=== PATIENT | female | born 1985 ===

== ENCOUNTER 2017-11-21 16:22 | Emergency (ER) | payer SELFPAY ==
[2017-11-21 16:48] VITALS: BP 126/81; RESP 16
[2017-11-21 17:37] LABS: PROTHROMBIN TIME 11.6 Seconds (9.8-13.1)
[2017-11-21 17:39] LABS: PARTIAL THROMBOPLASTIN TIME 27.7 Seconds (25.6-37.1)
[2017-11-21 17:42] LABS: BLOOD UREA NITROGEN 9 mg/dl (7-17); CALCIUM 8.8 mg/dL (8.4-10.2); GFR NON-AFRICAN AMERICAN > 60
[2017-11-21 17:47] LABS: BASO % 0.7 % (0.0-2.0); EOS % 0.3 % (0.0-4.0); HEMOGLOBIN 8.4 g/dL (12.0-16.0); LYMPH # 1.9 K/uL (1.0-4.3); LYMPH % 30.9 % (20.0-40.0); MEAN CELL VOLUME 80.7 fl (81.0-99.0); MEAN CORPUSCULAR HEMOGLOBIN 26.4 pg (27.0-31.0); MEAN CORPUSCULAR HGB CONC 32.7 g/dL (33.0-37.0); MEAN PLATELET VOLUME 7.8 fl (7.2-11.7); MONO # 0.5 K/uL (0.0-0.8); MONO % 7.2 % (0.0-10.0); NEUT # 3.8 K/uL (1.8-7.0); NEUT % 60.9 % (50.0-75.0); NRBC % 0.1 % (0.0-0.0); RBC 3.19 Mil/uL (3.80-5.20); RED CELL DISTRIBUTION WIDTH 31.9 % (11.5-14.5); WHITE BLOOD COUNT 6.3 K/uL (4.8-10.8)
--- NOTE | 2017-11-21 19:18 | ED PDOC ---
HPI: Female Pain Time Seen by Provider: 11/21/17 16:54 Chief Complaint (Nursing): Female Genitourinary Chief Complaint (Provider): Vaignal bleeding History Per: Patient Onset/Duration Of Symptoms: Days, Persistent Current Symptoms Are (Timing): Still Present Additional Complaint(s): 32yo female, comes to ER reporting persistent vaginal bleeding. Patient reports she was admitted to [facility] 20 days ago due to similar complaints, received a blood transfusion and went home on a 10-day course of an unknown medication. Patient reports the medication initially helped with the bleeding and since then returned. Patient also reports exertional dizziness; patient states she has been using 1 pad per hour for the entire day. Of note, patient states her last was 8 years ago. Otherwise, no fever, chills, chest pain, shortness of breath, abdominal pain or additional medical complaints. PMD: None provided Abnormal Vaginal Bleeding: Yes Past Medical History Reviewed: Historical Data, Nursing Documentation, Vital Signs Vital Signs: Last Vital Signs Temp 98.2 F 11/21/17 16:46 Pulse 69 11/21/17 16:46 Resp 16 11/21/17 16:46 BP 126/81 11/21/17 16:46 Pulse Ox 100 11/21/17 16:46 - Surgical History Surgical History: (x 3) - Family History Family History: States: No Known Family Hx - Living Arrangements Living Arrangements: With Family - Social History Current smoker - smoking cessation education provided: No Alcohol: None Drugs: Denies - Immunization History Hx Tetanus Toxoid Vaccination: No Hx Influenza Vaccination: No Hx Pneumococcal Vaccination: No - Home Medications Home Medications: Ambulatory Orders Medication Instructions Recorded Ferrous Sulfate [Feosol] 325 mg PO TID #30 tab 11/21/17 MedroxyPROGESTERone [Provera] 10 mg PO DAILY #30 tab 11/21/17 - Allergies Allergies/Adverse Reactions: Allergies Allergy/AdvReac Type Severity Reaction Status Date / Time No Known Allergies Allergy Verified 11/21/17 16:46 Review of Systems ROS Statement: Except As Marked, All Systems Reviewed And Found Negative Constitutional: Negative for: Fever, Chills Cardiovascular: Negative for: Chest Pain Respiratory: Negative for: Shortness of Breath Gastrointestinal: Negative for: Vomiting, Abdominal Pain Genitourinary Female: Positive for: Vaginal Bleeding. Negative for: Pelvic Pain Neurological: Positive for: Dizziness (on exertion) Physical Exam - Reviewed Nursing Documentation Reviewed: Yes Vital Signs Reviewed: Yes - Physical Exam Appears: Positive for: Non-toxic, No Acute Distress Head Exam: Positive for: ATRAUMATIC, NORMAL INSPECTION, NORMOCEPHALIC Skin: Positive for: Pallor Eye Exam: Positive for: EOMI, Normal appearance, PERRL Neck: Positive for: Normal, Supple Cardiovascular/Chest: Positive for: Regular Rate, Rhythm Respiratory: Positive for: Normal Breath Sounds Gastrointestinal/Abdominal: Positive for: Normal Exam, Soft Pelvic Exam: Positive for: Blood (mild to moderate blood in vaginal valt), Other (closed cervix) Back: Positive for: Normal Inspection Extremity: Positive for: Normal ROM. Negative for: Pedal Edema Neurologic/Psych: Positive for: Alert, Oriented. Negative for: Motor/Sensory Deficits - Laboratory Results Result Diagrams: 11/21/17 17:23 11/21/17 17:23 - ECG O2 Sat by Pulse Oximetry: 100 (RA) Pulse Ox Interpretation: Normal Medical Decision Making Medical Decision Making: Patient with persistent vaginal bleeding. Labs reviewed, patient with Hgb of 8.4. Upreg is negative. [address] Shirley, who recommends provera 10mg daily for 1 month and for outpatient [facility] follow up. Instructions for follow up as well as indications to return discussed with patient in Maltese. Patient stable for discharge home. Scribe Attestation: Documented by Kerri Multani, acting as a scribe for Ferny Venegas DO. Provider Scribe Attestation: All medical record entries made by the Scribe were at my direction and personally dictated by me. I have reviewed the chart and agree that the record accurately reflects my personal performance of the history, physical exam, medical decision making, and the department course for this patient. I have also personally directed, reviewed, and agree with the discharge instructions and disposition. Disposition - Clinical Impression Clinical Impression: Menorrhagia - Disposition [facility] Condition: STABLE Additional Instructions: Followup with [facility] in 1 week. Return to ER for any worsening weakness, dizziness or bleeding >3 pads/hour. Take Provera 10mg daily for one month. You need to see [facility] for further testing and definitive treatment. Seguimiento con gineclogo en 1 semana. Regrese a la ca de emergencias por cualquier empeoramiento de la debilidad, mareo o sangrado> 3 compresas / hora. [place] Provera 10 mg al da jacquelyn un mes. Necesitas leonard a un gineclogo para realizar ms pruebas Prescriptions: Ferrous Sulfate [Feosol] 325 mg PO TID #30 tab MedroxyPROGESTERone [Provera] 10 mg PO DAILY #30 tab Instructions: Anemia Caused by Low Iron, Adult (DC), Heavy Periods (DC) Forms: [employer] (Vietnamese) Print Language: SINHALA
[2017-11-21 19:31] VITALS: PULSE 65; TEMP 98.1; O2SAT 98
== END 2017-11-21 19:20 | disposition home or self-care (01) ==
LOC: H.ER 16:22
DX: N92.0 Excessive and frequent menstruation with regular cycle (principal)

== ENCOUNTER 2018-03-29 17:51 | Emergency (ER) | payer SELFPAY ==
[2018-03-29 18:22] VITALS: O2SAT 100
--- NOTE | 2018-03-29 19:08 | ED PDOC ---
HPI: General Adult Time Seen by Provider: 03/29/18 19:00 Chief Complaint (Nursing): Female Genitourinary Chief Complaint (Provider): high blood pressure History Per: Patient History/Exam Limitations: no limitations Onset/Duration Of Symptoms: Intermittent Episodes Current Symptoms Are (Timing): Better Additional Complaint(s): 32 year old female with pmHx of HTN, is referred to ED by her PCP for an evaluation of high blood pressure during a follow up visit today. Patient initially came to office for lower abdominal pain ongoing for 1 week in addition to current treatment for UTI and STD. Blood pressure was noted at 173/100 then referred to ED. No reports of headache, chest pain, or further medical complaints. Of note, patient previously discontinued Rx for hydrochlorothiazide 12.5mg months ago as she felt her BP became regulated. PCP: none provided Past Medical History Reviewed: Historical Data, Nursing Documentation, Vital Signs Vital Signs: Last Vital Signs Temp 98.5 F 03/29/18 18:17 Pulse 69 03/29/18 18:17 Resp 16 03/29/18 18:17 BP 133/86 03/29/18 18:17 Pulse Ox 100 03/29/18 18:17 - Medical History PMH: HTN - Surgical History Surgical History: (x 3) - Family History Family History: States: No Known Family Hx - Immunization History Hx Tetanus Toxoid Vaccination: No Hx Influenza Vaccination: No Hx Pneumococcal Vaccination: No - Home Medications Home Medications: Ambulatory Orders Medication Instructions Recorded Ferrous Sulfate [Feosol] 325 mg PO TID #30 tab 11/21/17 MedroxyPROGESTERone [Provera] 10 mg PO DAILY #30 tab 11/21/17 - Allergies Allergies/Adverse Reactions: Allergies Allergy/AdvReac Type Severity Reaction Status Date / Time No Known Allergies Allergy Verified 03/29/18 18:17 Review of Systems ROS Statement: Except As Marked, All Systems Reviewed And Found Negative Cardiovascular: Negative for: Chest Pain Gastrointestinal: Positive for: Abdominal Pain (lower) Neurological: Negative for: Headache Physical Exam - Reviewed Nursing Documentation Reviewed: Yes Vital Signs Reviewed: Yes - Physical Exam Appears: Positive for: Well, Non-toxic, No Acute Distress Head Exam: Positive for: ATRAUMATIC, NORMAL INSPECTION, NORMOCEPHALIC Skin: Positive for: Normal Color Eye Exam: Positive for: Normal appearance, EOMI, PERRL ENT: Positive for: Normal ENT Inspection. Negative for: Pharyngeal Erythema Neck: Positive for: Normal, Painless ROM, Supple Cardiovascular/Chest: Positive for: Regular Rate, Rhythm, Chest Non Tender. Negative for: Murmur Respiratory: Positive for: Normal Breath Sounds. Negative for: Wheezing, Respiratory Distress Pulses-Radial (L): 2+ Pulses-Radial (R): 2+ Gastrointestinal/Abdominal: Positive for: Normal Exam, Soft. Negative for: Tenderness, Guarding, Rebound Back: Positive for: Normal Inspection Extremity: Positive for: Normal ROM (upper/lower) Neurologic/Psych: Positive for: Alert, Oriented. Negative for: Motor/Sensory Deficits - ECG O2 Sat by Pulse Oximetry: 100 (RA) Pulse Ox Interpretation: Normal Medical Decision Making Medical Decision Making: Initial Impression: Asymptomatic hypertension Initial Plan: Scribe Attestation: Documented by Shu Bar, acting as a scribe for Katey Longo MD. Provider Scribe Attestation: All medical record entries made by the Scribe were at my direction and personally dictated by me. I have reviewed the chart and agree that the record accurately reflects my personal performance of the history, physical exam, medical decision making, and the department course for this patient. I have also personally directed, reviewed, and agree with the discharge instructions and disposition. Disposition - Disposition Forms: [employer] (Bulgarian)
[2018-03-29] MEDS ORDERED: Sodium Chloride 0.9% 1,000 ML IV STA (19:40)
--- NOTE | 2018-03-29 19:49 | ED PDOC ---
HPI: Abdomen Time Seen by Provider: 03/29/18 19:00 Chief Complaint (Nursing): Female Genitourinary Chief Complaint (Provider): abdominal pain History Per: Patient History/Exam Limitations: no limitations Onset/Duration Of Symptoms: Days (x2) Current Symptoms Are (Timing): Still Present Additional Complaint(s): 32 year old female with pmHx of anemia, uterine fibroids, and DUB, presents to ED with a complaint of diffuse abdominal pain associated with vomiting, watery d iarrhea, decreased appetite, and dizziness since last night. Additionally, she reports experiencing vaginal bleeding secondary to her DUB diagnosis and has been on Provera for 3 months and iron boosts for anemia. PCP: none provided Past Medical History Reviewed: Historical Data, Nursing Documentation, Vital Signs Vital Signs: Last Vital Signs Temp 98.5 F 03/29/18 18:17 Pulse 69 03/29/18 18:17 Resp 16 03/29/18 18:17 BP 133/86 03/29/18 18:17 Pulse Ox 100 03/29/18 18:17 - Medical History PMH: Anemia Other PMH: uterine fibroids - Surgical History Surgical History: (x 3) Other surgeries: transfusion x1 - Family History Family History: States: Unknown Family Hx - Immunization History Hx Tetanus Toxoid Vaccination: No Hx Influenza Vaccination: No Hx Pneumococcal Vaccination: No - Home Medications Home Medications: Ambulatory Orders Medication Instructions Recorded Ferrous Sulfate [Feosol] 325 mg PO TID #30 tab 11/21/17 MedroxyPROGESTERone [Provera] 10 mg PO DAILY #30 tab 11/21/17 Dicyclomine [Dicyclomine HCl] 10 mg PO TID #15 cap 03/29/18 Ondansetron ODT [Zofran ODT] 4 mg PO Q8 PRN #12 odt 03/29/18 - Allergies Allergies/Adverse Reactions: Allergies Allergy/AdvReac Type Severity Reaction Status Date / Time No Known Allergies Allergy Verified 03/29/18 18:17 Review of Systems ROS Statement: Except As Marked, All Systems Reviewed And Found Negative Gastrointestinal: Positive for: Vomiting, Abdominal Pain, Diarrhea (watery), Other (decreased appetite) Genitourinary Female: Positive for: Vaginal Bleeding Neurological: Positive for: Dizziness Physical Exam - Reviewed Nursing Documentation Reviewed: Yes Vital Signs Reviewed: Yes - Physical Exam Appears: Positive for: Non-toxic, No Acute Distress Head Exam: Positive for: ATRAUMATIC, NORMAL INSPECTION, NORMOCEPHALIC Skin: Positive for: Normal Color Eye Exam: Positive for: Normal appearance ENT: Positive for: Normal ENT Inspection Neck: Positive for: Normal, Supple Cardiovascular/Chest: Positive for: Regular Rate, Rhythm, Chest Non Tender Respiratory: Positive for: Normal Breath Sounds. Negative for: Respiratory Distress Gastrointestinal/Abdominal: Positive for: Soft, Tenderness (mild, nonspecific, diffuse). Negative for: Distended Back: Positive for: Normal Inspection. Negative for: L CVA Tenderness, R CVA Tenderness Extremity: Positive for: Normal ROM (upper/lower) Neurologic/Psych: Positive for: Alert, Oriented. Negative for: Motor/Sensory Deficits - Laboratory Results Result Diagrams: 03/29/18 20:02 03/29/18 20:02 - ECG O2 Sat by Pulse Oximetry: 100 (RA) Pulse Ox Interpretation: Normal - Progress Re-evaluation Time: 23:44 Condition: Re-examined, Improved Medical Decision Making Medical Decision Making: Initial Impression: acute abdominal pain/vomiting/ diarrhea. chronic vaginal bleed x3 months Differential diagnosis: gastritis, pancreatitis, gastroenteritis, colitis; DUB, chronic anemia, uterine fibroids. Initial Plan: * CT ABD/pelvis * Labs * Bentyl 10mg PO * IV fluids * Toradol 15mg IVP * Zofran 4mg IVP Scribe Attestation: Documented by Shu Bar, acting as a scribe for Katey Longo MD. Provider Scribe Attestation: All medical record entries made by the Scribe were at my direction and personally dictated by me. I have reviewed the chart and agree that the record accurately reflects my personal performance of the history, physical exam, medical decision making, and the department course for this patient. I have also personally directed, reviewed, and agree with the discharge instructions and disposition. Time: 1100 CT ABD/PELVIS RESULTS FINDINGS: LUNG BASES: The lung bases appear clear. No pleural effusions are seen. LIVER: There is some hepatic steatosis present. GALLBLADDER AND BILE DUCTS: The gallbladder appears within normal limits. No radioopaque gallstones are seen. No biliary ductal dilatation is evident. PANCREAS: Unremarkable. SPLEEN: Unremarkable. ADRENAL GLANDS: Unremarkable. KIDNEYS, URETERS, AND BLADDER: The kidneys appear within normal limits. There is no hydronephrosis or hydroureter. A punctate non-obstructing calculus is seen in the lower left renal pole. The urinary bladder is normal in size and configuration. STOMACH AND BOWEL: Unremarkable appearance of the stomach. No evidence of bowel obstruction. There is mucosal wall thickening seen within the ileal small intestine measuring up to 3.8 mm transversely. These findings are compatible with some ileitis APPENDIX: No evidence of acute appendicitis on CT examination. PERITONEUM: No free fluid. No free air. LYMPH NODES: No lymphadenopathy is evident. REPRODUCTIVE: Unremarkable as visualized. VASCULATURE: No evidence of abdominal aortic aneurysm. BONES: No aggressive appearing osseous lesion. No acute osseous pathology evident. IMPRESSION: 1. Evidence of ileitis of the small intestinal tract. 2. A punctate non--obstructing calculus is noted in the lower left renal pole. 3. Some hepatic steatosis is noted. Electronically signed on Mar 29, 2018 11:00:25 PM EST by: Sunny Solano M.D., IKE Certified By ABR & CBC[facility] Fellowship Trained MRI and CT Specialist Disposition - Clinical Impression Clinical Impression: Abdominal pain, Hepatic steatosis - Patient ED Disposition Is Patient to be Admitted: No Doctor Will See Patient In The: Office Counseled Patient/Family Regarding: Studies Performed, Diagnosis, Need For Followup - Disposition Referrals: [facility] [Outside] Disposition: Routine/Home Disposition Time: 23:44 Condition: GOOD Additional Instructions: BA EISENBERG, thank you for letting us take care of you today. Your provider was Katey Longo MD and you were treated for LOWER ABD PAIN. The emergency medical care you received today was directed at your acute symptoms. If you were prescribed any medication, please fill it and take as directed. It may take several days for your symptoms to resolve. Return to the Emergency Department if your symptoms worsen, do not improve, or if you have any other problems. Please contact your doctor or call one of the physicians/clinics you have been referred to that are listed on the Patient Visit Information form that is included in your discharge packet. Bring any paperwork you were given at discharge with you along with any medications you are taking to your follow up visit. Our treatment cannot replace ongoing medical care by a primary care provider outside of the emergency department. Thank you for allowing the [facility] team to be part of your care today. If you had an X-Ray or CT scan: A Radiologist will review the ED reading if any change in treatment is needed we will contact you. If you had a blood, urine, or wound culture: It will take several days for the results, if any change in treatment is needed we will contact you. If you had an STI test: It will take 48 hours for the results. Please call after 1 week if you have not heard back. Prescriptions: Dicyclomine [Dicyclomine HCl] 10 mg PO TID #15 cap Ondansetron ODT [Zofran ODT] 4 mg PO Q8 PRN #12 odt PRN Reason: Nausea/Vomiting Instructions: Viral Gastroenteritis, Adult (DC)
[2018-03-29 20:05] LABS: BASO # 0.1 K/uL (0.0-0.2); BASO % 1.1 % (0.0-2.0); EOS # 0.1 K/uL (0.0-0.7); HEMOGLOBIN 11.5 g/dL (12.0-16.0); LYMPH # 2.4 K/uL (1.0-4.3); MEAN CELL VOLUME 90.7 fl (81.0-99.0); MEAN CORPUSCULAR HEMOGLOBIN 30.1 pg (27.0-31.0); MEAN CORPUSCULAR HGB CONC 33.2 g/dL (33.0-37.0); MEAN PLATELET VOLUME 7.5 fl (7.2-11.7); MONO # 0.5 K/uL (0.0-0.8); MONO % 8.4 % (0.0-10.0); NEUT # 2.8 K/uL (1.8-7.0); NEUT % 48.5 % (50.0-75.0); NRBC % 0.1 % (0.0-0.0); RBC 3.83 Mil/uL (3.80-5.20); RED CELL DISTRIBUTION WIDTH 14.1 % (11.5-14.5); WHITE BLOOD COUNT 5.8 K/uL (4.8-10.8)
[2018-03-29 20:18] LABS: ALB/GLOB RATIO 1.2 (1.0-2.1); ALBUMIN 4.4 g/dL (3.5-5.0); ALT/SGPT 26 U/L (9-52); AST/SGOT 37 U/L (14-36); BLOOD UREA NITROGEN 12 mg/dl (7-17); CALCIUM 9.6 mg/dL (8.4-10.2); GFR NON-AFRICAN AMERICAN > 60; LIPASE 74 U/L (23-300)
[2018-03-29] MEDS ORDERED: Iohexol 300 100 ML IJ ONE (21:58)
[2018-03-29] MEDS ORDERED: Sodium Chloride 0.9% 50 ML IV ONE (21:58)
[2018-03-29 23:54] VITALS: BP 101/68; PULSE 60; RESP 18; TEMP 98
--- NOTE | 2018-03-30 08:41 | CT ---
Date of service: 03/29/2018 PROCEDURE: CT Abdomen and Pelvis with contrast HISTORY: abdominal pain COMPARISON: None. TECHNIQUE: Contrast dose: Radiation dose: Total exam DLP = 344.45 mGy-cm. This CT exam was performed using one or more of the following dose reduction techniques: Automated exposure control, adjustment of the mA and/or kV according to patient size, and/or use of iterative reconstruction technique. FINDINGS: LOWER THORAX: Unremarkable. LIVER: Mild fatty liver. No gross lesion or ductal dilatation. GALLBLADDER AND BILE DUCTS: Unremarkable. PANCREAS: Unremarkable. No gross lesion or ductal dilatation. SPLEEN: Unremarkable. ADRENALS: Unremarkable. No mass. KIDNEYS AND URETERS: Tiny left lower pole renal calculus. No hydronephrosis. No solid mass. VASCULATURE: Unremarkable. No aortic aneurysm. No aortic atherosclerotic calcification or mural plaque present. BOWEL: Unremarkable. No obstruction. No gross mural thickening. APPENDIX: Normal appendix. PERITONEUM: Unremarkable. No free fluid. No free air. LYMPH NODES: Unremarkable. No enlarged lymph nodes. BLADDER: Unremarkable. REPRODUCTIVE: Unremarkable. BONES: No acute fracture. OTHER FINDINGS: None. IMPRESSION: Mild fatty liver. Left nephrolithiasis.
== END 2018-03-29 23:58 | disposition home or self-care (01) ==
LOC: H.ER 17:51
DX: R10.9 Unspecified abdominal pain (principal); K76.0 Fatty (change of) liver, not elsewhere classified; K52.9 Noninfective gastroenteritis and colitis, unspecified; N20.0 Calculus of kidney
CPT/HCPCS: 74177; 80053; 81025; 83690; 85025; 96361; 96374; 96375; 99283; J1885; J2405; J7030; Q9967